=== PATIENT | male | born 1950 | race Caucasian/White ===

== ENCOUNTER 2018-11-10 12:55 | Emergency (ER) | payer MEDICARE, BC ==
--- NOTE | 2018-11-10 15:19 | EDM.PDOC ---
ED HPI GENERAL MEDICAL PROBLEM - General Chief Complaint: Gastrointestinal Problem Stated Complaint: RUPTURED COLON? Time Seen by Provider: 11/10/18 14:50 Source of Information: Reports: Patient, Family History Limitations: Reports: No Limitations - History of Present Illness INITIAL COMMENTS - FREE TEXT/NARRATIVE: 68-year-old male has not had a bowel movement in 5 days, straining at the stool and feels impacted. He's had a small amount of loose stool. No significant pain , no nausea or vomiting, no fevers or chills. He has not tried any stool softeners or anticonstipation medications. Onset: Gradual Duration: Day(s): (At least 5 days) Associated Symptoms: Reports: No Other Symptoms - Related Data Allergies Allergy/AdvReac Type Severity Reaction Status Date / Time No Known Allergies Allergy Verified 11/10/18 14:51 Home Meds: Home Meds Aspirin 325 mg PO DAILY 11/10/18 [History] Furosemide [Lasix] 10 mg PO DAILY 11/10/18 [History] Labetalol [Normodyne] 100 mg PO BID 11/10/18 [History] Omeprazole 10 mg PO DAILY 11/10/18 [History] Sildenafil Citrate 20 mg PO ASDIRECTED 11/10/18 [History] atorvaSTATin [Lipitor] 40 mg PO DAILY 11/10/18 [History] Past Medical History Cardiovascular History: Reports: CAD, High Cholesterol, Hypertension Respiratory History: Reports: COPD Genitourinary History: Reports: BPH Musculoskeletal History: Reports: Fracture Psychiatric History: Reports: Depression - Past Surgical History HEENT Surgical History: Reports: Tonsillectomy Cardiovascular Surgical History: Reports: Carotid Endarterectomy Musculoskeletal Surgical History: Reports: Other (See Below) Other Musculoskeletal Surgeries/Procedures:: right hip repair Social & Family History - Tobacco Use Smoking Status *Q: Former Smoker Used Tobacco, but Quit: Yes Month/Year Tobacco Last Used: 2013 - Caffeine Use Caffeine Use: Reports: Coffee ED ROS GENERAL - Review of Systems Review Of Systems: See Below Constitutional: Denies: Fever, Chills Respiratory: Denies: Shortness of Breath Cardiovascular: Denies: Chest Pain GI/Abdominal: Reports: Constipation, Other (Some perirectal discomfort and liquid stool incontinence). Denies: Abdominal Pain, Nausea, Vomiting Neurological: Reports: No Symptoms ED EXAM, GI/ABD - Physical Exam Exam: See Below Exam Limited By: No Limitations General Appearance: Alert, No Apparent Distress Eyes: Bilateral: Normal Appearance Respiratory/Chest: No Respiratory Distress, Lungs Clear GI/Abdominal Exam: Soft, Non-Tender. No: Distended Rectal (Males) Exam: Fecal Impaction Neurological: Alert, Oriented Psychiatric: Normal Affect, Normal Mood Skin Exam: Warm, Dry Course - Vital Signs Last Recorded V/S: Last Vital Signs Temp 96.5 F 11/10/18 14:48 Pulse 80 11/10/18 14:48 Resp 17 11/10/18 14:48 BP 151/74 H 11/10/18 14:48 Pulse Ox 96 11/10/18 14:48 - Re-Assessments/Exams Free Text/Narrative Re-Assessment/Exam: 11/10/18 15:18 Digital exam revealed fecal impaction. Digital decompaction was done, and the patient soon after was able to have a long prolonged significant bowel movement. No further treatment was needed. Departure - Departure Time of Disposition: 15:25 Disposition: Home, Self-Care 01 Condition: Good Clinical Impression: Constipation Qualifiers: Constipation type: slow transit constipation Qualified Code(s): K59.01 - Slow transit constipation - Discharge Information Instructions: Constipation, Adult Referrals: PCP,None [Primary Care Provider] - Forms: ED Department Discharge Care Plan Goals: Good fiber intake, stool softeners and lots of water would be beneficial. Recheck if worsening or concerns.
== END 2018-11-10 15:34 | disposition home or self-care (01) ==
LOC: JP.ED 12:55
DX: K59.01 Slow transit constipation (principal); I10 Essential (primary) hypertension; E78.00 Pure hypercholesterolemia, unspecified; Z79.82 Long term (current) use of aspirin; Z79.899 Other long term (current) drug therapy; Z98.890 Other specified postprocedural states; Z87.891 Personal history of nicotine dependence
CPT/HCPCS: 99282

== ENCOUNTER 2023-09-06 07:27 | Day surgery (SDC) | payer MEDICARE, BC, OTHER ==
[2023-09-06] MEDS: Sodium Chloride 0.9% 10 ML Syringe FLUSH PRN (08:20)
== END 2023-09-06 09:35 | disposition home or self-care (01) ==
LOC: JP.SDS 07:27
PROVIDERS: ATTEND Ophthalmology
DX: H25.12 Age-related nuclear cataract, left eye (principal); H57.03 Miosis; I10 Essential (primary) hypertension; F17.200 Nicotine dependence, unspecified, uncomplicated; K21.9 Gastro-esophageal reflux disease without esophagitis
CPT/HCPCS: 00142-QZ; J3490; V2632